=== PATIENT | male | born 1985 | race Caucasian/White ===

== ENCOUNTER 2020-11-02 10:39 | Emergency (ER) | payer OTHER ==
[~2020-11-02] VITALS: Ht 182.9 cm; Wt 104.0 kg
[2020-11-02] MEDS ORDERED: KETOROLAC 60MG/2ML VIAL IM STA (10:47)
[2020-11-02 10:59] VITALS: BP 122/86
[2020-11-02] MEDS ORDERED: IBUP-2029 PO (11:26)
== END 2020-11-02 12:49 | disposition home or self-care (01) ==
LOC: ER 10:39
DX: S67.22XA Crushing injury of left hand, initial encounter (principal); W22.09XA Striking against other stationary object, initial encounter; Y93.9 Activity, unspecified; Y92.9 Unspecified place or not applicable
CPT/HCPCS: 29125; 73130; 96372; 99283; J1885